=== PATIENT | female | born 1955 | race Caucasian/White ===

== ENCOUNTER 2018-12-01 12:29 | Outpatient (CLI) | payer OTHER | END 2018-12-01 12:32 | disposition home or self-care (01) | LOC: MAMO-SONO 12:29 | DX: N60.11 Diffuse cystic mastopathy of right breast (principal); N60.12 Diffuse cystic mastopathy of left breast ==

== ENCOUNTER 2018-12-07 08:55 | Outpatient (CLI) | payer OTHER | END 2018-12-07 17:00 | disposition home or self-care (01) | LOC: TOM 08:55 | DX: R10.9 Unspecified abdominal pain (principal) ==

== ENCOUNTER → 2018-12-07 | Outpatient (CLI) | payer OTHER | END | disposition home or self-care (01) | LOC: NUCLEAR 10:45 | DX: I11.9 Hypertensive heart disease without heart failure (principal) ==

== ENCOUNTER 2020-06-23 18:35 | Emergency (ER) | payer OTHER ==
[~2020-06-23] VITALS: Ht 165.1 cm; Wt 91.6 kg
[2020-06-24] MEDS ORDERED: CARAFATE1 GM PO (02:26)
[2020-06-24] MEDS ORDERED: PEPCID AC20 MG PO (02:26)
[2020-06-24] MEDS ORDERED: ONDANSETRON ODT4 MG SL (02:26)
[2020-06-24] MEDS ORDERED: LANSOPRAZOLE30 MG PO (02:26)
== END 2020-06-24 02:35 | disposition home or self-care (01) ==
LOC: ER 18:35
DX: K29.70 Gastritis, unspecified, without bleeding (principal)

== ENCOUNTER 2020-12-16 01:49 | Emergency (ER) | payer OTHER ==
[~2020-12-16] VITALS: Ht 162.6 cm; Wt 90.7 kg
[~2020-12-16 01:49] MED LIST: CARAFATE1 GM PO; LANSOPRAZOLE30 MG PO; ONDANSETRON ODT4 MG SL; PEPCID AC20 MG PO
[2020-12-16] MEDS ORDERED: MEDROLPACK PO (07:17)
[2020-12-16] MEDS ORDERED: BENADRYL ALLERG25 MG PO (07:17)
== END 2020-12-16 07:55 | disposition home or self-care (01) ==
LOC: ER 01:49
DX: T78.2XXA Anaphylactic shock, unspecified, initial encounter (principal); T78.3XXA Angioneurotic edema, initial encounter

== ENCOUNTER 2022-01-13 13:16 | Outpatient (CLI) | payer OTHER ==
[~2022-01-13 13:16] MED LIST changes: +BENADRYL ALLERG25 MG PO; +MEDROLPACK PO
== END 2022-01-13 13:24 | disposition home or self-care (01) ==
LOC: MAMO-SONO 13:16
PROVIDERS: ATTEND Internal Medicine
DX: Z12.31 Encounter for screening mammogram for malignant neoplasm of breast (principal)

== ENCOUNTER 2023-07-13 17:25 | Inpatient (IN) | payer OTHER ==
[~2023-07-13] VITALS: Ht 165.1 cm; Wt 85.3 kg
[2023-07-13] MEDS ORDERED: HYDROCHLOROTHIA25 MG PO (18:04)
[2023-07-13] MEDS ORDERED: PAROXETINE HCL20 MG PO (18:05)
[2023-07-13] MEDS ORDERED: [UNRECOGNIZED DRUG - SUPPLY] (18:05)
[2023-07-22] MEDS ORDERED: VANCOMYCIN HCL1 GM PO (11:32)
[2023-07-22] MEDS ORDERED: NORVASC2.5 M1 PO (11:33)
[2023-07-22] MEDS ORDERED: METRONIDAZOLE500 MG PO (11:33)
[2023-07-22] MEDS ORDERED: INTEGRA PLUS C1 EACH PO (11:33)
[2023-07-22] MEDS ORDERED: PAXIL20 MG PO (11:33)
[2023-07-22] MEDS ORDERED: INTESTINEX680 M1 PO (11:34)
[2023-07-22] MEDS ORDERED: FAMOTIDINE20 MG PO (11:34)
[2023-07-22] MEDS ORDERED: VANCOMYCIN HCL250 MG PO (17:02)
== END 2023-07-22 14:24 | disposition home or self-care (01) | DRG 871 ==
LOC: ER 17:25 → ICU-2 22:49 → ICU 07-16 03:36 → MEDI 07-18 19:58
PROVIDERS: General Practice; ADMIT Internal Medicine; ATTEND Internal Medicine
PROC: BW21ZZZ Computerized Tomography (CT Scan) of Abdomen and Pelvis (ICD-10-PCS; principal; 2023-07-13)
PROC: 4A12X4Z Monitoring of Cardiac Electrical Activity, External Approach (ICD-10-PCS; 2023-07-13)
PROC: 3E0F7SF Introduction of Other Gas into Respiratory Tract, Via Natural or Artificial Opening (ICD-10-PCS; 2023-07-13)
PROC: BB24ZZZ Computerized Tomography (CT Scan) of Bilateral Lungs (ICD-10-PCS; 2023-07-14)
PROC: 02HV33Z Insertion of Infusion Device into Superior Vena Cava, Percutaneous Approach (ICD-10-PCS; 2023-07-15)
PROC: 30233N1 Transfusion of Nonautologous Red Blood Cells into Peripheral Vein, Percutaneous Approach (ICD-10-PCS; 2023-07-16)
DX: A41.89 Other specified sepsis (principal); R57.1 Hypovolemic shock; R65.21 Severe sepsis with septic shock; A04.72 Enterocolitis due to Clostridium difficile, not specified as recurrent; N17.8 Other acute kidney failure; J90 Pleural effusion, not elsewhere classified; E86.0 Dehydration; D64.89 Other specified anemias; E87.6 Hypokalemia; E83.42 Hypomagnesemia; I12.9 Hypertensive chronic kidney disease with stage 1 through stage 4 chronic kidney disease, or unspecified chronic kidney disease; N18.9 Chronic kidney disease, unspecified; Z87.891 Personal history of nicotine dependence

== ENCOUNTER 2023-08-18 22:40 | Emergency (ER) | payer OTHER ==
[~2023-08-18] VITALS: Ht 162.6 cm; Wt 80.7 kg
[~2023-08-18 22:40] MED LIST changes: +FAMOTIDINE20 MG PO; +HYDROCHLOROTHIA25 MG PO; +INTEGRA PLUS C1 EACH PO; +INTESTINEX680 M1 PO; +METRONIDAZOLE500 MG PO; +NORVASC2.5 M1 PO; +PAROXETINE HCL20 MG PO; +PAXIL20 MG PO; +VANCOMYCIN HCL1 GM PO; +VANCOMYCIN HCL250 MG PO; +[UNRECOGNIZED DRUG - SUPPLY]
[2023-08-19 02:20] LABS: URINE APPEARANCE Clear; URINE BILIRRUBIN Negative (NEGATIVE); URINE BLOOD Negative; URINE COLOR Yellow; URINE GLUCOSE Negative (NEGATIVE); URINE LEUKOCYTE Negative; URINE NITRATE Negative; URINE PROTEIN Negative (NEGATIVE); URINE UROBILINOGEN 0.2 E.U./dl
[2023-08-19 02:24] LABS: URINE BACTERIA 35.2 uL (0.0-1933); URINE EPITHELIAL CELLS 11.8 uL (0.0-38.8); URINE WBC 9.8 uL (0.0-23.2)
[2023-08-19 02:27] LABS: MEAN CELL VOLUME 84.5 fL (80.00-100.00); MEAN CORPUSCULAR HEMOGLOBIN 27.9 pg (27.00-32.0); PLATELET COUNT 272 K/uL (150-450); RED BLOOD COUNT 4.26 M/uL (4.00-6.00); RED CELL DISTRIBUTION WIDTH 15.2 % (11.5-14.5)
[2023-08-19 02:30] LABS: HEMOGLOBIN 11.9 g/dL (12.0-15.00)
[2023-08-19 02:44] LABS: ALBUMIN 3.1 gm/dL (3.4-5.0); BILIRUBIN TOTAL 0.26 mg/dL (0.3-1.2); CALCIUM 8.3 mg/dL (8.5-10.1); GFR 29.2; GLOBULINA 4.8 G/DL (2.4-3.5); POTASSIUM 3.75 mEq/L (3.5-5.1); TOTAL PROTEIN 7.9 gm/dL (6.4-8.2)
[2023-08-19 02:49] LABS: CREATININE SERUM 1.73 mg/dL (0.55-1.02)
== END 2023-08-19 10:32 | disposition home or self-care (01) ==
LOC: ER 22:41
PROVIDERS: General Practice
DX: R19.7 Diarrhea, unspecified (principal); Z20.822 Contact with and (suspected) exposure to COVID-19

== ENCOUNTER 2023-09-04 01:44 | Inpatient (IN) | payer OTHER ==
[~2023-09-04] VITALS: Ht 162.6 cm; Wt 80.3 kg
[2023-09-04] MEDS ORDERED: CRESTOR5 MG PO (01:50)
[2023-09-04] MEDS ORDERED: CLONAZEPAM2 M1 (01:50)
[2023-09-04 03:30] LABS: HEMATOCRIT 34.1 % (36.0-45.00); MEAN CELL VOLUME 84.9 fL (80.00-100.00); MEAN CORPUSCULAR HGB CONC 31.6 g/dl (32.0-36.0); PLATELET COUNT 245 K/uL (150-450); RED BLOOD COUNT 4.01 M/uL (4.00-6.00); RED CELL DISTRIBUTION WIDTH 14.9 % (11.5-14.5)
[2023-09-04 03:41] LABS: HEMOGLOBIN 10.8 g/dL (12.0-15.00); MEAN CORPUSCULAR HEMOGLOBIN 26.9 pg (27.00-32.0)
[2023-09-04 04:02] LABS: BILIRUBIN TOTAL 0.53 mg/dL (0.3-1.2); CALCIUM 7.7 mg/dL (8.5-10.1); CREATININE SERUM 1.68 mg/dL (0.55-1.02); GFR 30.21; GLOBULINA 4.2 G/DL (2.4-3.5); POTASSIUM 3.12 mEq/L (3.5-5.1); TOTAL PROTEIN 7.2 gm/dL (6.4-8.2)
[2023-09-04 16:17] LABS: HEMATOCRIT 36.3 % (36.0-45.00); HEMOGLOBIN 11.8 g/dL (12.0-15.00); MEAN CELL VOLUME 85.9 fL (80.00-100.00); MEAN CORPUSCULAR HEMOGLOBIN 27.9 pg (27.00-32.0); MEAN CORPUSCULAR HGB CONC 32.4 g/dl (32.0-36.0); PLATELET COUNT 234 K/uL (150-450); RED BLOOD COUNT 4.22 M/uL (4.00-6.00); RED CELL DISTRIBUTION WIDTH 15.2 % (11.5-14.5)
[2023-09-04 16:35] LABS: INR 1.12; PARTIAL THROMBOPLASTIN TIME 26.5 SECONDS (22.0-34.0); PROTHROMBIN TIME 11.7 SECONDS (9.0-11.5)
[2023-09-04 16:38] LABS: CALCIUM 7.8 mg/dL (8.5-10.1); CREATININE SERUM 1.46 mg/dL (0.55-1.02); GFR 35.52; PHOSPHOROUS 3.3 mg/dL (2.5-4.9); POTASSIUM 3.26 mEq/L (3.5-5.1)
[2023-09-04 16:52] LABS: MAGNESIUM 1.2 mg/dL (1.8-2.4)
[2023-09-04 18:48] LABS: ob POSITIVE (NEGATIVE)
[2023-09-05 07:01] LABS: PH,URINE 5.5 (5.0-8.0); URINE APPEARANCE Clear; URINE BILIRRUBIN Negative (NEGATIVE); URINE BLOOD Negative; URINE COLOR Yellow; URINE GLUCOSE Negative (NEGATIVE); URINE LEUKOCYTE Negative; URINE NITRATE Negative; URINE PROTEIN Negative (NEGATIVE); URINE UROBILINOGEN 0.2 E.U./dl
[2023-09-05 07:05] LABS: URINE BACTERIA 75.5 uL (0.0-1933); URINE EPITHELIAL CELLS 3.3 uL (0.0-38.8); URINE RBC 2.5 uL (0.0-20.8)
[2023-09-05 07:29] LABS: HEMATOCRIT 36.2 % (36.0-45.00); HEMOGLOBIN 12.4 g/dL (12.0-15.00); MEAN CELL VOLUME 84.7 fL (80.00-100.00); MEAN CORPUSCULAR HEMOGLOBIN 29.1 pg (27.00-32.0); MEAN CORPUSCULAR HGB CONC 34.3 g/dl (32.0-36.0); PLATELET COUNT 233 K/uL (150-450); RED BLOOD COUNT 4.27 M/uL (4.00-6.00); RED CELL DISTRIBUTION WIDTH 15.6 % (11.5-14.5)
[2023-09-05 08:03] LABS: BILIRUBIN TOTAL 0.36 mg/dL (0.3-1.2); CREATININE SERUM 1.37 mg/dL (0.55-1.02); GFR 38.23; GLOBULINA 4.1 G/DL (2.4-3.5); MAGNESIUM 2.7 mg/dL (1.8-2.4); PHOSPHOROUS 2.7 mg/dL (2.5-4.9); POTASSIUM 3.89 mEq/L (3.5-5.1); TOTAL PROTEIN 7.1 gm/dL (6.4-8.2)
[2023-09-08 06:27] LABS: HEMATOCRIT 29.8 % (36.0-45.00); HEMOGLOBIN 10.1 g/dL (12.0-15.00); MEAN CELL VOLUME 84.6 fL (80.00-100.00); MEAN CORPUSCULAR HEMOGLOBIN 28.8 pg (27.00-32.0); PLATELET COUNT 229 K/uL (150-450); RED BLOOD COUNT 3.52 M/uL (4.00-6.00); RED CELL DISTRIBUTION WIDTH 15.5 % (11.5-14.5)
[2023-09-08 06:51] LABS: ALBUMIN 2.5 gm/dL (3.4-5.0); BILIRUBIN TOTAL 0.35 mg/dL (0.3-1.2); CALCIUM 8.4 mg/dL (8.5-10.1); CREATININE SERUM 1.19 mg/dL (0.55-1.02); GFR 44.97; GLOBULINA 3.4 G/DL (2.4-3.5); PHOSPHOROUS 2.8 mg/dL (2.5-4.9); POTASSIUM 3.54 mEq/L (3.5-5.1); TOTAL PROTEIN 5.9 gm/dL (6.4-8.2)
[2023-09-08 07:08] LABS: MAGNESIUM 1.4 mg/dL (1.8-2.4)
[2023-09-10 06:23] LABS: HEMATOCRIT 31.1 % (36.0-45.00); HEMOGLOBIN 10.4 g/dL (12.0-15.00); MEAN CELL VOLUME 84.9 fL (80.00-100.00); MEAN CORPUSCULAR HEMOGLOBIN 28.5 pg (27.00-32.0); MEAN CORPUSCULAR HGB CONC 33.5 g/dl (32.0-36.0); PLATELET COUNT 238 K/uL (150-450); RED BLOOD COUNT 3.66 M/uL (4.00-6.00); RED CELL DISTRIBUTION WIDTH 15.4 % (11.5-14.5)
[2023-09-10 06:53] LABS: ALBUMIN 2.6 gm/dL (3.4-5.0); BILIRUBIN TOTAL 0.26 mg/dL (0.3-1.2); CALCIUM 8.4 mg/dL (8.5-10.1); CREATININE SERUM 1.2 mg/dL (0.55-1.02); GFR 44.54; GLOBULINA 3.3 G/DL (2.4-3.5); PHOSPHOROUS 3.2 mg/dL (2.5-4.9); POTASSIUM 3.48 mEq/L (3.5-5.1); TOTAL PROTEIN 5.9 gm/dL (6.4-8.2)
[2023-09-10 07:56] LABS: MAGNESIUM 1.1 mg/dL (1.8-2.4)
[2023-09-10] MEDS ORDERED: AMLODIPINE BESYL5 MG PO (11:51)
[2023-09-10] MEDS ORDERED: SIMVASTATIN10 MG PO (11:51)
[2023-09-10] MEDS ORDERED: PAXIL20 MG PO (11:51)
[2023-09-10] MEDS ORDERED: INTESTINEX680 M1 PO (11:52)
[2023-09-10] MEDS ORDERED: CALCIUM 500-VI1 EAC6 PO (11:52)
[2023-09-10] MEDS ORDERED: PRE PROTEIN1 EACH PO (11:54)
[2023-09-10] MEDS ORDERED: VANCOMYCIN HCL125 MG PO (11:54)
== END 2023-09-10 16:11 | disposition home or self-care (01) | DRG 373 ==
LOC: ER 01:44 → MEDJ 20:07 → MEDI 20:07 → MEDJ 20:17
PROVIDERS: General Practice; ADMIT Internal Medicine; ATTEND Internal Medicine
PROC: BW21YZZ Computerized Tomography (CT Scan) of Abdomen and Pelvis using Other Contrast (ICD-10-PCS; 2023-09-04)
PROC: 0DBK8ZX Excision of Ascending Colon, Via Natural or Artificial Opening Endoscopic, Diagnostic (ICD-10-PCS; principal; 2023-09-09)
PROC: 0DBL8ZX Excision of Transverse Colon, Via Natural or Artificial Opening Endoscopic, Diagnostic (ICD-10-PCS; 2023-09-09)
PROC: 0DBN8ZX Excision of Sigmoid Colon, Via Natural or Artificial Opening Endoscopic, Diagnostic (ICD-10-PCS; 2023-09-09)
PROC: 0DBP8ZX Excision of Rectum, Via Natural or Artificial Opening Endoscopic, Diagnostic (ICD-10-PCS; 2023-09-09)
PROC: 0DBM8ZX Excision of Descending Colon, Via Natural or Artificial Opening Endoscopic, Diagnostic (ICD-10-PCS; 2023-09-09)
DX: A04.71 Enterocolitis due to Clostridium difficile, recurrent (principal); K52.839 Microscopic colitis, unspecified; K63.5 Polyp of colon; I10 Essential (primary) hypertension; F41.9 Anxiety disorder, unspecified

== ENCOUNTER → 2024-02-02 | Outpatient (CLI) | payer OTHER ==
[~2024-02-02] MED LIST changes: +AMLODIPINE BESYL5 MG PO; +CALCIUM 500-VI1 EAC6 PO; +CLONAZEPAM2 M1; +CRESTOR5 MG PO; +PRE PROTEIN1 EACH PO; +SIMVASTATIN10 MG PO; +VANCOMYCIN HCL125 MG PO
== END | disposition home or self-care (01) ==
LOC: TOM 11:50
PROVIDERS: ATTEND Internal Medicine Hematology & Oncology
DX: C34.31 Malignant neoplasm of lower lobe, right bronchus or lung (principal)
CPT/HCPCS: 71260; Q9965

== ENCOUNTER 2024-05-24 13:21 | Outpatient (CLI) | payer OTHER | END 2024-05-24 13:27 | disposition home or self-care (01) | LOC: MAMO-SONO 13:21 | PROVIDERS: ATTEND Internal Medicine | DX: N60.11 Diffuse cystic mastopathy of right breast (principal); N60.12 Diffuse cystic mastopathy of left breast; Z12.31 Encounter for screening mammogram for malignant neoplasm of breast ==

== ENCOUNTER 2024-08-08 09:33 | Outpatient (CLI) | payer OTHER | END 2024-08-08 09:49 | disposition home or self-care (01) | LOC: TOM 09:33 | PROVIDERS: ATTEND Internal Medicine Hematology & Oncology | DX: C34.31 Malignant neoplasm of lower lobe, right bronchus or lung (principal) ==

== ENCOUNTER 2024-12-04 06:45 | Emergency (ER) | payer OTHER ==
[~2024-12-04] VITALS: Ht 162.6 cm; Wt 77.1 kg
[2024-12-04] MEDS ORDERED: DICYCLOMINE HCL 10 MG CAPSULE PO ONE (08:45)
[2024-12-04] MEDS ORDERED: FAMOTIDINE/PF 20 MG/2 ML VIAL ONE (08:45)
[2024-12-04] MEDS ORDERED: ONDANSETRON HCL 2 MG/ML VIAL ONE (08:45)
[2024-12-04 09:39] LABS: HEMATOCRIT 35.7 % (36.0-45.00); HEMOGLOBIN 11.9 g/dL (12.0-15.00); MEAN CELL VOLUME 87.9 fL (80.00-100.00); MEAN CORPUSCULAR HEMOGLOBIN 29.3 pg (27.00-32.0); MEAN CORPUSCULAR HGB CONC 33.3 g/dl (32.0-36.0); PLATELET COUNT 221 K/uL (150-450); RED BLOOD COUNT 4.07 M/uL (4.00-6.00); RED CELL DISTRIBUTION WIDTH 13.9 % (11.5-14.5)
[2024-12-04 10:12] LABS: ALBUMIN 3.6 gm/dL (3.4-5.0); BILIRUBIN TOTAL 0.32 mg/dL (0.3-1.2); CALCIUM 8.4 mg/dL (8.5-10.1); CREATININE SERUM 1.74 mg/dL (0.55-1.02); GFR 28.93; GLOBULINA 4.1 G/DL (2.4-3.5); POTASSIUM 3.53 mEq/L (3.5-5.1); TOTAL PROTEIN 7.7 gm/dL (6.4-8.2)
[2024-12-04] MEDS ORDERED: PEPCID AC20 MG PO (14:56)
== END 2024-12-04 15:13 | disposition home or self-care (01) ==
LOC: ER 06:47
PROVIDERS: General Practice
DX: R10.13 Epigastric pain (principal); Z20.822 Contact with and (suspected) exposure to COVID-19; Z88.5 Allergy status to narcotic agent

== ENCOUNTER 2025-01-26 08:29 | Outpatient (CLI) | payer OTHER | END 2025-01-26 08:31 | disposition home or self-care (01) | LOC: NUCLEAR 08:29 | PROVIDERS: ATTEND Internal Medicine | DX: C34.31 Malignant neoplasm of lower lobe, right bronchus or lung (principal) | CPT/HCPCS: 78816; A9552 ==

== ENCOUNTER 2025-10-02 10:58 | Outpatient (CLI) | payer OTHER | END 2025-10-02 10:59 | disposition home or self-care (01) | LOC: SONOGRAMA 10:58 | PROVIDERS: ATTEND Pathology Anatomic Pathology | DX: D44.0 Neoplasm of uncertain behavior of thyroid gland (principal); E04.1 Nontoxic single thyroid nodule ==

== ENCOUNTER 2025-10-17 08:48 | Outpatient (CLI) | payer OTHER | END 2025-10-17 08:49 | disposition home or self-care (01) | LOC: SONOGRAMA 08:48 | PROVIDERS: ATTEND Specialist/Technologist, Other Nephrology | DX: R10.9 Unspecified abdominal pain (principal); N18.30 Chronic kidney disease, stage 3 unspecified; R31.9 Hematuria, unspecified ==

== ENCOUNTER 2025-11-03 07:07 | Outpatient (CLI) | payer OTHER | END 2025-11-03 07:08 | disposition home or self-care (01) | LOC: NUCLEAR 07:07 | PROVIDERS: ATTEND Internal Medicine | DX: E21.0 Primary hyperparathyroidism (principal) | CPT/HCPCS: 78070; A9500 ==